=== PATIENT | female | born 1965 | race Caucasian/White ===

== ENCOUNTER → 2018-12-20 | Outpatient (CLI) | payer BC ==
[~2018-12-20] MED LIST: CIPRO500 MG PO; DARVOCET N 1001 TAB PO; DAYPRO600 M1 PO; DETROL LA4 MG PO; DITROPAN5 MG PO; FLOMAX0.4 MG PO; IBU-8800 MG PO; LISINOPRIL/HCTZ1 TA1 PO; LOPRESSOR50 MG PO; MAXALT-MLT5 MG PO; MOTRIN800 MG PO; NKHM; PERCOCET 325 MG1 TA2 PO; PERCOCET 325 MG1 TA5 PO; PERCOCET 325 MG1 TA7 PO; PREDNICOT20 MG PO; PYRIDIUM200 MG PO; ROBAXIN750 MG PO; ROBITUSSIN AC 10 MG/ PO; ROBITUSSIN AC 110 ML PO; TOPROL-XL50 MG PO; TRAMADOL50 MG PO; VESICARE5 MG PO; VICODIN 500 MG-1 TAB PO; ZITHROMAX Z PA250 MG PO; ZITHROMAX250 MG PO; ZOFRAN ODT4 MG SL; ZYRTEC10 MG PO; Zofran4 MG PO
== END | disposition home or self-care (01) ==
LOC: US 01:58
DX: N13.30 Unspecified hydronephrosis (principal)

== ENCOUNTER → 2019-01-30 | Outpatient (CLI) | payer BC ==
[2019-01-30 10:42] LABS: BASO # 0.1 10*3/uL (0.0-0.1); BASO % 0.8 % (0.0-1.0); EOS # 0.2 10*3/uL (0.0-0.4); EOS % 2.4 % (1.0-4.0); HEMATOCRIT 44.5 % (37.0-47.0); HEMOGLOBIN 14.8 g/dl (12.0-16.0); LYMPH # 2.9 10*3/uL (1.3-4.4); LYMPH % 36.5 % (27.0-41.0); MEAN CELL VOLUME 93.5 fl (81.0-99.0); MEAN CORPUSCULAR HGB 31.1 pg (27.0-31.0); MEAN CORPUSCULAR HGB CONC 33.3 g/dl (33.0-37.0); MEAN PLATELET VOLUME 9.8 fl (9.6-12.3); MONO # 0.8 10*3/uL (0.1-1.0); MONO % 10.7 % (3.0-9.0); NEUT # 3.8 10*3/uL (2.3-7.9); NEUT % 49.1 % (47.0-73.0); PLATELET COUNT AUTOMATED 333 10*3/uL (130-400); RED BLOOD COUNT 4.76 10*6/uL (4.10-5.10); RED CELL DISTRI WIDTH 11.6 % (0-14.5); WHITE BLOOD COUNT 7.8 10*3/uL (4.8-10.8)
[2019-01-30 10:48] LABS: BILIRUBIN NEGATIVE (NEGATIVE); BLOOD NEGATIVE (NEGATIVE); CLARITY SL CLOUDY (CLEAR); COLOR YELLOW (YELLOW); GLUCOSE NEGATIVE (NEGATIVE); KETONE NEGATIVE (NEGATIVE); LEUKO ESTERASE NEGATIVE (NEGATIVE); NITRITE NEGATIVE (NEGATIVE); SPECIFIC GRAVITY >= 1.030 (1.005-1.030); UROBILINOGEN 0.2 E.U./dl (0.2-1.0)
[2019-01-30 10:56] LABS: BACTERIA 2+; EPITHELIAL CELLS 16-20
[2019-01-30 11:05] LABS: ALBUMIN 3.6 gm/dl (3.1-4.5); BUN 16 mg/dl (7-24); CHLORIDE 105 mmol/L (98-107); CREATININE 0.86 mg/dL (0.55-1.02); POTASSIUM 3.6 mmol/L (3.5-5.1); SGOT/AST 26 IU/L (3-35); SGPT/ALT 48 U/L (12-78); SODIUM 140 mmol/L (136-145)
[2019-01-30 11:06] LABS: ALKALINE PHOSPHATASE 134 U/L (45-117)
== END | disposition home or self-care (01) ==
LOC: CT 10:00 → LAB 10:15
PROVIDERS: Urology
DX: N13.2 Hydronephrosis with renal and ureteral calculous obstruction (principal); I10 Essential (primary) hypertension; N39.0 Urinary tract infection, site not specified

== ENCOUNTER → 2019-02-21 | Outpatient (CLI) | payer BC ==
[2019-02-21 13:56] LABS: BILIRUBIN NEGATIVE (NEGATIVE); BLOOD NEGATIVE (NEGATIVE); CLARITY CLEAR (CLEAR); COLOR YELLOW (YELLOW); GLUCOSE NEGATIVE (NEGATIVE); KETONE NEGATIVE (NEGATIVE); LEUKO ESTERASE NEGATIVE (NEGATIVE); NITRITE NEGATIVE (NEGATIVE); PH 5.5 (5.0-9.0); SPECIFIC GRAVITY >= 1.030 (1.005-1.030); UROBILINOGEN 0.2 E.U./dl (0.2-1.0)
[2019-02-21 14:27] LABS: BACTERIA 2+; EPITHELIAL CELLS 16-20; MUCOUS TRACE
== END | disposition home or self-care (01) ==
LOC: LAB 02:19
PROVIDERS: Urology
DX: Z01.818 Encounter for other preprocedural examination (principal)

== ENCOUNTER → 2019-03-01 | Outpatient (CLI) | payer BC | END | disposition home or self-care (01) | LOC: RAD 09:41 | DX: N20.0 Calculus of kidney (principal) ==

== ENCOUNTER 2019-11-23 19:45 | Emergency (ER) | payer BC ==
[~2019-11-23] VITALS: Ht 170.1 cm; Wt 90.7 kg
[2019-11-23 20:17] LABS: BASO # 0.1 10*3/uL (0.0-0.1); BASO % 0.9 % (0.0-1.0); EOS # 0.2 10*3/uL (0.0-0.4); EOS % 1.9 % (1.0-4.0); HEMATOCRIT 42.9 % (37.0-47.0); LYMPH # 4.5 10*3/uL (1.3-4.4); LYMPH % 45.6 % (27.0-41.0); MEAN CELL VOLUME 91.5 fl (81.0-99.0); MEAN CORPUSCULAR HGB 29.9 pg (27.0-31.0); MEAN CORPUSCULAR HGB CONC 32.6 g/dl (33.0-37.0); MEAN PLATELET VOLUME 10.4 fl (9.6-12.3); MONO # 0.9 10*3/uL (0.1-1.0); MONO % 9.5 % (3.0-9.0); NEUT # 4.1 10*3/uL (2.3-7.9); NEUT % 41.8 % (47.0-73.0); PLATELET COUNT AUTOMATED 292 10*3/uL (130-400); RED BLOOD COUNT 4.69 10*6/uL (4.10-5.10); RED CELL DISTRI WIDTH 11.9 % (0-14.5); WHITE BLOOD COUNT 9.9 10*3/uL (4.8-10.8)
[2019-11-23 20:28] LABS: ACT PARTIAL THROMBO TIME 28.1 SECONDS (20.0-32.1); INTERNATIONAL NORM RATIO 0.9 (2.0-3.5)
[2019-11-23 20:34] LABS: ALBUMIN 3.8 gm/dl (3.1-4.5); ALKALINE PHOSPHATASE 132 U/L (45-117); BUN 17 mg/dl (7-24); CHLORIDE 106 mmol/L (98-107); CREATININE 0.85 mg/dL (0.55-1.02); POTASSIUM 3.4 mmol/L (3.5-5.1); SGOT/AST 23 IU/L (3-35); SGPT/ALT 47 U/L (12-78); SODIUM 140 mmol/L (136-145); TOTAL PROTEIN 7.7 gm/dL (6.4-8.2); TROPONIN I < 0.015 ng/ml (<0.045)
[2019-11-24] MEDS ORDERED: ZOFRAN4 MG PO (01:02)
[2019-11-24] MEDS ORDERED: PEPCID20 MG PO (01:02)
== END 2019-11-24 01:18 | disposition home or self-care (01) ==
LOC: ED 19:45
PROVIDERS: Emergency Medicine
DX: R00.2 Palpitations (principal); M54.9 Dorsalgia, unspecified; R07.89 Other chest pain; R11.2 Nausea with vomiting, unspecified; I10 Essential (primary) hypertension; K21.9 Gastro-esophageal reflux disease without esophagitis; Z88.6 Allergy status to analgesic agent; Z79.899 Other long term (current) drug therapy

== ENCOUNTER → 2020-07-16 | Outpatient (CLI) | payer BC ==
[~2020-07-16] MED LIST changes: +PEPCID20 MG PO; +ZOFRAN4 MG PO
[2020-07-16 07:50] LABS: BASO # 0.1 10*3/uL (0.0-0.1); BASO % 0.7 % (0.0-1.0); EOS # 0.2 10*3/uL (0.0-0.4); EOS % 2.8 % (1.0-4.0); HEMATOCRIT 41.3 % (37.0-47.0); LYMPH # 3.2 10*3/uL (1.3-4.4); LYMPH % 43.8 % (27.0-41.0); MEAN CELL VOLUME 88.8 fl (81.0-99.0); MEAN CORPUSCULAR HGB 29.5 pg (27.0-31.0); MEAN CORPUSCULAR HGB CONC 33.2 g/dl (33.0-37.0); MEAN PLATELET VOLUME 10.2 fl (9.6-12.3); MONO # 0.7 10*3/uL (0.1-1.0); MONO % 10.3 % (3.0-9.0); NEUT # 3.1 10*3/uL (2.3-7.9); NEUT % 42.3 % (47.0-73.0); PLATELET COUNT AUTOMATED 271 10*3/uL (130-400); RED BLOOD COUNT 4.65 10*6/uL (4.10-5.10); RED CELL DISTRI WIDTH 11.8 % (0-14.5); WHITE BLOOD COUNT 7.2 10*3/uL (4.8-10.8)
[2020-07-16 08:01] LABS: ALBUMIN 3.5 gm/dl (3.1-4.5); ALKALINE PHOSPHATASE 118 U/L (45-117); BUN 14 mg/dl (7-24); CHLORIDE 107 mmol/L (98-107); CREATININE 0.75 mg/dL (0.55-1.02); POTASSIUM 3.9 mmol/L (3.5-5.1); SGOT/AST 23 IU/L (3-35); SGPT/ALT 40 U/L (12-78); SODIUM 139 mmol/L (136-145); TOTAL PROTEIN 7.4 gm/dL (6.4-8.2)
== END | disposition home or self-care (01) ==
LOC: LAB 00:51 → US 07:30 → LAB 07:30
PROVIDERS: Family Medicine
DX: K76.0 Fatty (change of) liver, not elsewhere classified (principal); N20.0 Calculus of kidney; N13.30 Unspecified hydronephrosis

== ENCOUNTER 2020-11-04 09:21 | Emergency (ER) | payer BC ==
[~2020-11-04] VITALS: Ht 170.1 cm; Wt 90.7 kg
[2020-11-04 10:29] LABS: BASO # 0.1 10*3/uL (0.0-0.1); BASO % 0.6 % (0.0-1.0); EOS % 0.4 % (1.0-4.0); HEMATOCRIT 45.1 % (37.0-47.0); LYMPH # 2.2 10*3/uL (1.3-4.4); LYMPH % 20.5 % (27.0-41.0); MEAN CELL VOLUME 89.3 fl (81.0-99.0); MEAN CORPUSCULAR HGB 29.1 pg (27.0-31.0); MEAN CORPUSCULAR HGB CONC 32.6 g/dl (33.0-37.0); MEAN PLATELET VOLUME 9.8 fl (9.6-12.3); MONO # 0.8 10*3/uL (0.1-1.0); NEUT # 7.4 10*3/uL (2.3-7.9); NEUT % 70.3 % (47.0-73.0); PLATELET COUNT AUTOMATED 338 10*3/uL (130-400); RED BLOOD COUNT 5.05 10*6/uL (4.10-5.10); RED CELL DISTRI WIDTH 11.7 % (0-14.5); WHITE BLOOD COUNT 10.5 10*3/uL (4.8-10.8)
[2020-11-04 10:49] LABS: ALBUMIN 3.7 gm/dl (3.1-4.5); ALKALINE PHOSPHATASE 140 U/L (45-117); BUN 13 mg/dl (7-24); CHLORIDE 105 mmol/L (98-107); CREATININE 0.84 mg/dL (0.55-1.02); LIPASE 99 U/L (73-393); POTASSIUM 3.7 mmol/L (3.5-5.1); SGOT/AST 25 IU/L (3-35); SGPT/ALT 54 U/L (12-78); SODIUM 136 mmol/L (136-145); TOTAL PROTEIN 8.1 gm/dL (6.4-8.2)
[2020-11-04] MEDS ORDERED: ANUSOL-HC25 MG R (11:46)
[2020-11-04] MEDS ORDERED: DICYCLOMINE HCL10 MG PO (11:46)
== END 2020-11-04 12:04 | disposition home or self-care (01) ==
LOC: ED 09:21
PROVIDERS: Physician Assistant
DX: K52.9 Noninfective gastroenteritis and colitis, unspecified (principal); K21.9 Gastro-esophageal reflux disease without esophagitis; Z88.6 Allergy status to analgesic agent; Z79.899 Other long term (current) drug therapy

== ENCOUNTER → 2021-01-03 | Outpatient (CLI) | payer BC ==
[~2021-01-03] MED LIST changes: +ANUSOL-HC25 MG R; +DICYCLOMINE HCL10 MG PO
== END | disposition home or self-care (01) ==
LOC: RAD 11:31
PROVIDERS: ATTEND Internal Medicine Nephrology
DX: M25.422 Effusion, left elbow (principal); Z91.81 History of falling

== ENCOUNTER → 2021-01-16 | Outpatient (CLI) | payer BC | END | disposition home or self-care (01) | LOC: US 00:07 | PROVIDERS: ATTEND Internal Medicine | DX: K76.0 Fatty (change of) liver, not elsewhere classified (principal); N83.201 Unspecified ovarian cyst, right side; N13.30 Unspecified hydronephrosis; Z78.0 Asymptomatic menopausal state ==

== ENCOUNTER → 2021-02-03 | Outpatient (CLI) | payer BC | END | disposition home or self-care (01) | LOC: COVID19 08:09 | PROVIDERS: ATTEND Internal Medicine Gastroenterology | DX: Z01.812 Encounter for preprocedural laboratory examination (principal); Z20.822 Contact with and (suspected) exposure to COVID-19 ==

== ENCOUNTER → 2021-02-19 | Outpatient (CLI) | payer BC | END | disposition home or self-care (01) | LOC: MRI 00:19 | PROVIDERS: ATTEND Nurse Practitioner Women's Health | DX: N83.201 Unspecified ovarian cyst, right side (principal); N95.0 Postmenopausal bleeding; R93.89 Abnormal findings on diagnostic imaging of other specified body structures ==

== ENCOUNTER → 2021-03-11 | Outpatient (CLI) | payer BC ==
[2021-03-11 12:04] LABS: BASO # 0.1 10*3/uL (0.0-0.1); BASO % 0.9 % (0.0-1.0); EOS # 0.2 10*3/uL (0.0-0.4); EOS % 2.8 % (1.0-4.0); HEMATOCRIT 41.2 % (37.0-47.0); LYMPH # 2.7 10*3/uL (1.3-4.4); LYMPH % 42.6 % (27.0-41.0); MEAN CELL VOLUME 91.6 fl (81.0-99.0); MEAN CORPUSCULAR HGB 29.8 pg (27.0-31.0); MEAN CORPUSCULAR HGB CONC 32.5 g/dl (33.0-37.0); MEAN PLATELET VOLUME 9.7 fl (9.6-12.3); MONO # 0.5 10*3/uL (0.1-1.0); MONO % 7.8 % (3.0-9.0); NEUT # 2.9 10*3/uL (2.3-7.9); NEUT % 45.6 % (47.0-73.0); PLATELET COUNT AUTOMATED 321 10*3/uL (130-400); RED CELL DISTRI WIDTH 11.9 % (0-14.5); WHITE BLOOD COUNT 6.4 10*3/uL (4.8-10.8)
[2021-03-11 12:08] LABS: BILIRUBIN Negative (Negative); BLOOD Negative (Negative); CLARITY Clear (Clear); COLOR Yellow (Yellow); GLUCOSE Negative (Negative); KETONE Negative (Negative); LEUKO ESTERASE Negative (Negative); NITRITE Negative (Negative); PH 5.5 (4.5-8.0); UROBILINOGEN 0.2 E.U./dl (0.0-1.0)
[2021-03-11 12:18] LABS: BACTERIA 1+
[2021-03-11 12:39] LABS: ALBUMIN 3.7 gm/dl (3.1-4.5); ALKALINE PHOSPHATASE 130 U/L (45-117); BUN 18 mg/dl (7-24); CHLORIDE 107 mmol/L (98-107); CREATININE 0.72 mg/dL (0.55-1.02); POTASSIUM 3.9 mmol/L (3.5-5.1); SGOT/AST 57 IU/L (3-35); SGPT/ALT 91 U/L (12-78); SODIUM 138 mmol/L (136-145); T3 UPTAKE 34 % (31-39); THYROXINE (T4) TOTAL 7.6 ug/dl (4.8-13.9); TOTAL PROTEIN 7.5 gm/dL (6.4-8.2)
== END | disposition home or self-care (01) ==
LOC: LAB 10:48 → US 11:30
PROVIDERS: ATTEND Urology
DX: N20.0 Calculus of kidney (principal); R31.9 Hematuria, unspecified; N13.30 Unspecified hydronephrosis; N83.01 Follicular cyst of right ovary

== ENCOUNTER 2021-10-02 08:16 | Emergency (ER) | payer BC ==
[~2021-10-02] VITALS: Wt 81.6 kg
[2021-10-02 10:27] LABS: ALBUMIN 3.6 gm/dl (3.1-4.5); ALKALINE PHOSPHATASE 104 U/L (45-117); BUN 11 mg/dl (7-24); CHLORIDE 108 mmol/L (98-107); CREATININE 0.71 mg/dL (0.55-1.02); LIPASE 77 U/L (73-393); POTASSIUM 3.8 mmol/L (3.5-5.1); SGOT/AST 14 IU/L (3-35); SGPT/ALT 33 U/L (12-78); SODIUM 141 mmol/L (136-145); TOTAL PROTEIN 7.1 gm/dL (6.4-8.2)
[2021-10-02 10:31] LABS: BASO # 0.1 10*3/uL (0.0-0.1); BASO % 0.7 % (0.0-1.0); EOS # 0.1 10*3/uL (0.0-0.4); EOS % 0.9 % (1.0-4.0); HEMATOCRIT 41.5 % (37.0-47.0); LYMPH # 1.5 10*3/uL (1.3-4.4); LYMPH % 14.1 % (27.0-41.0); MEAN CELL VOLUME 91.6 fl (81.0-99.0); MEAN CORPUSCULAR HGB 30.5 pg (27.0-31.0); MEAN CORPUSCULAR HGB CONC 33.3 g/dl (33.0-37.0); MEAN PLATELET VOLUME 9.9 fl (9.6-12.3); MONO # 1.1 10*3/uL (0.1-1.0); MONO % 10.1 % (3.0-9.0); NEUT # 7.8 10*3/uL (2.3-7.9); NEUT % 73.9 % (47.0-73.0); PLATELET COUNT AUTOMATED 266 10*3/uL (130-400); RED BLOOD COUNT 4.53 10*6/uL (4.10-5.10); RED CELL DISTRI WIDTH 12.3 % (0-14.5); WHITE BLOOD COUNT 10.6 10*3/uL (4.8-10.8)
[2021-10-02 10:58] LABS: BILIRUBIN Negative (Negative); BLOOD 3+ (Negative); CLARITY Turbid (Clear); COLOR Orange (Yellow); GLUCOSE Negative (Negative); KETONE Negative (Negative); LEUKO ESTERASE 2+ (Negative); NITRITE Positive (Negative); PH 6.5 (4.5-8.0); UROBILINOGEN 0.2 E.U./dl (0.0-1.0)
[2021-10-02 11:09] LABS: BACTERIA 4+; RBC TNTC rbc/hpf (0-2); WBC TNTC wbc/hpf (0-5)
== END 2021-10-02 11:07 | disposition home or self-care (01) ==
LOC: ED 08:16
PROVIDERS: Emergency Medicine
DX: N13.2 Hydronephrosis with renal and ureteral calculous obstruction (principal); Z88.6 Allergy status to analgesic agent; Z79.899 Other long term (current) drug therapy

== ENCOUNTER 2022-02-09 16:45 | Emergency (ER) | payer BC ==
[~2022-02-09] VITALS: Ht 170.1 cm; Wt 83.9 kg
[2022-02-09] MEDS ORDERED: NEXIUM10 MG PO (17:13)
[2022-02-09] MEDS ORDERED: ENDOCET 5-3251 EACH PO (18:45)
== END 2022-02-09 18:35 | disposition home or self-care (01) ==
LOC: ED 16:45
DX: S42.401A Unspecified fracture of lower end of right humerus, initial encounter for closed fracture (principal); Z88.6 Allergy status to analgesic agent; Z79.899 Other long term (current) drug therapy; Z98.51 Tubal ligation status; W18.39XA Other fall on same level, initial encounter; Y93.89 Activity, other specified; Y92.89 Other specified places as the place of occurrence of the external cause; Y99.8 Other external cause status

== ENCOUNTER → 2022-03-03 | Outpatient (CLI) | payer BC ==
[~2022-03-03] MED LIST changes: +ENDOCET 5-3251 EACH PO; +NEXIUM10 MG PO
== END | disposition home or self-care (01) ==
LOC: ORTHO 00:26
PROVIDERS: ATTEND Orthopaedic Surgery
DX: S52.131D Displaced fracture of neck of right radius, subsequent encounter for closed fracture with routine healing (principal); X58.XXXD Exposure to other specified factors, subsequent encounter

== ENCOUNTER → 2022-03-18 | Outpatient (CLI) | payer BC | END | disposition home or self-care (01) | LOC: ORTHO 00:15 | PROVIDERS: ATTEND Orthopaedic Surgery | DX: M25.562 Pain in left knee (principal) ==

== ENCOUNTER → 2022-03-25 | Outpatient (CLI) | payer BC | END | disposition home or self-care (01) | LOC: ORTHO 01:43 | PROVIDERS: ATTEND Orthopaedic Surgery | DX: S52.121D Displaced fracture of head of right radius, subsequent encounter for closed fracture with routine healing (principal); X58.XXXD Exposure to other specified factors, subsequent encounter ==

== ENCOUNTER → 2022-08-10 | Outpatient (CLI) | payer BC | END | disposition home or self-care (01) | LOC: COVID19 10:26 | PROVIDERS: ATTEND Internal Medicine | DX: Z20.822 Contact with and (suspected) exposure to COVID-19 (principal) ==

== ENCOUNTER 2023-04-20 12:02 | Emergency (ER) | payer OTHER ==
[~2023-04-20] VITALS: Wt 89.4 kg
[2023-04-20 13:44] LABS: BASO # 0.1 10*3/uL (0.0-0.1); EOS # 0.2 10*3/uL (0.0-0.4); HEMATOCRIT 43.3 % (37.0-47.0); LYMPH # 3.3 10*3/uL (1.3-4.4); LYMPH % 40.7 % (27.0-41.0); MEAN PLATELET VOLUME 9.8 fl (9.6-12.3); MONO # 0.8 10*3/uL (0.1-1.0); MONO % 9.5 % (3.0-9.0); NEUT # 3.8 10*3/uL (2.3-7.9); NEUT % 46.6 % (47.0-73.0); PLATELET COUNT AUTOMATED 297 10*3/uL (130-400); RED BLOOD COUNT 4.76 10*6/uL (4.10-5.10); RED CELL DISTRI WIDTH 11.7 % (0-14.5); WHITE BLOOD COUNT 8.2 10*3/uL (4.8-10.8)
[2023-04-20 13:46] LABS: BILIRUBIN Negative (Negative); BLOOD Negative (Negative); CLARITY Clear (Clear); COLOR Yellow (Yellow); GLUCOSE Negative (Negative); KETONE Negative (Negative); LEUKO ESTERASE Negative (Negative); NITRITE Negative (Negative); PH 7.5 (4.5-8.0); SPECIFIC GRAVITY <= 1.005 (1.001-1.030)
[2023-04-20 14:08] LABS: ALKALINE PHOSPHATASE 147 U/L (46-116); BUN 9 mg/dl (9-23); CHLORIDE 103 mmol/L (98-107); POTASSIUM 3.8 mmol/L (3.4-5.1); SGPT/ALT 39 U/L (10-49); TOTAL PROTEIN 7.3 gm/dL (6.0-8.0)
[2023-04-20 14:08] LABS: BACTERIA 2+
[2023-04-20] MEDS ORDERED: CEPHALEXIN500 M1 PO (14:34)
== END 2023-04-20 14:55 | disposition home or self-care (01) ==
LOC: ED 12:02
PROVIDERS: Nurse Practitioner Family
DX: N39.0 Urinary tract infection, site not specified (principal); I10 Essential (primary) hypertension; G43.909 Migraine, unspecified, not intractable, without status migrainosus; Z87.442 Personal history of urinary calculi; K21.9 Gastro-esophageal reflux disease without esophagitis; Z88.6 Allergy status to analgesic agent; Z88.5 Allergy status to narcotic agent; Z98.51 Tubal ligation status; Z98.890 Other specified postprocedural states

== ENCOUNTER → 2023-06-09 | Outpatient (CLI) | payer OTHER ==
[~2023-06-09] MED LIST changes: +CEPHALEXIN500 M1 PO
== END | disposition home or self-care (01) ==
LOC: MAMMO 06-08 16:00
PROVIDERS: ATTEND Internal Medicine
DX: Z12.31 Encounter for screening mammogram for malignant neoplasm of breast (principal)

== ENCOUNTER → 2023-08-04 | Outpatient (CLI) | payer OTHER | END | disposition home or self-care (01) | LOC: MRI 00:41 | PROVIDERS: ATTEND Specialist | DX: I67.82 Cerebral ischemia (principal); R90.82 White matter disease, unspecified; H90.3 Sensorineural hearing loss, bilateral ==

== ENCOUNTER 2023-08-11 18:24 | Emergency (ER) | payer OTHER ==
[~2023-08-11] VITALS: Ht 170.1 cm; Wt 80.7 kg
[2023-08-11 19:54] LABS: BASO # 0.1 10*3/uL (0.0-0.1); BASO % 0.6 % (0.0-1.0); EOS # 0.1 10*3/uL (0.0-0.4); EOS % 1.5 % (1.0-4.0); HEMATOCRIT 40.8 % (37.0-47.0); LYMPH # 1.9 10*3/uL (1.3-4.4); LYMPH % 23.4 % (27.0-41.0); MEAN CELL VOLUME 88.7 fl (81.0-99.0); MEAN CORPUSCULAR HGB 30.2 pg (27.0-31.0); MEAN CORPUSCULAR HGB CONC 34.1 g/dl (33.0-37.0); MONO # 1.3 10*3/uL (0.1-1.0); NEUT # 4.7 10*3/uL (2.3-7.9); NEUT % 58.4 % (47.0-73.0); PLATELET COUNT AUTOMATED 257 10*3/uL (130-400); RED CELL DISTRI WIDTH 11.8 % (0-14.5); WHITE BLOOD COUNT 8.1 10*3/uL (4.8-10.8)
[2023-08-11 19:56] LABS: BILIRUBIN Negative (Negative); BLOOD Negative (Negative); CLARITY Clear (Clear); COLOR Dark Yellow (Yellow); GLUCOSE Negative (Negative); KETONE Trace (Negative); LEUKO ESTERASE 1+ (Negative); NITRITE Negative (Negative)
[2023-08-11 20:06] LABS: BACTERIA 2+
[2023-08-11 20:15] LABS: ALKALINE PHOSPHATASE 115 U/L (46-116); BUN 15 mg/dl (9-23); CHLORIDE 102 mmol/L (98-107); POTASSIUM 3.1 mmol/L (3.4-5.1); SGPT/ALT 28 U/L (10-49); TOTAL PROTEIN 6.7 gm/dL (6.0-8.0)
== END 2023-08-11 22:27 | disposition home or self-care (01) ==
LOC: ED 18:24
PROVIDERS: Physician Assistant Medical
DX: N39.0 Urinary tract infection, site not specified (principal); Z87.442 Personal history of urinary calculi; R11.2 Nausea with vomiting, unspecified; R19.7 Diarrhea, unspecified; I10 Essential (primary) hypertension; K21.9 Gastro-esophageal reflux disease without esophagitis; G43.909 Migraine, unspecified, not intractable, without status migrainosus; Z88.6 Allergy status to analgesic agent; Z88.5 Allergy status to narcotic agent; Z98.51 Tubal ligation status; Z98.890 Other specified postprocedural states

== ENCOUNTER 2024-02-16 16:32 | Emergency (ER) | payer OTHER ==
[~2024-02-16] VITALS: Ht 170.1 cm; Wt 84.4 kg
[2024-02-16 17:06] LABS: BILIRUBIN Negative (Negative); BLOOD Negative (Negative); CLARITY Clear (Clear); COLOR Yellow (Yellow); GLUCOSE Negative (Negative); KETONE Negative (Negative); LEUKO ESTERASE Negative (Negative); NITRITE Negative (Negative); PH 7.5 (4.5-8.0); SPECIFIC GRAVITY 1.015 (1.001-1.030)
[2024-02-16 17:14] LABS: BASO # 0.1 10*3/uL (0.0-0.1); BASO % 0.9 % (0.0-1.0); EOS # 0.2 10*3/uL (0.0-0.4); EOS % 2.2 % (1.0-4.0); HEMATOCRIT 42.4 % (37.0-47.0); LYMPH # 3.4 10*3/uL (1.3-4.4); LYMPH % 44.1 % (27.0-41.0); MEAN CELL VOLUME 91.6 fl (81.0-99.0); MEAN CORPUSCULAR HGB 29.8 pg (27.0-31.0); MEAN CORPUSCULAR HGB CONC 32.5 g/dl (33.0-37.0); MEAN PLATELET VOLUME 9.9 fl (9.6-12.3); MONO # 0.7 10*3/uL (0.1-1.0); MONO % 9.2 % (3.0-9.0); NEUT # 3.4 10*3/uL (2.3-7.9); NEUT % 43.3 % (47.0-73.0); PLATELET COUNT AUTOMATED 279 10*3/uL (130-400); RED BLOOD COUNT 4.63 10*6/uL (4.10-5.10); RED CELL DISTRI WIDTH 11.7 % (0-14.5); WHITE BLOOD COUNT 7.7 10*3/uL (4.8-10.8)
[2024-02-16 17:16] LABS: BACTERIA 2+
[2024-02-16 17:40] LABS: ALKALINE PHOSPHATASE 163 U/L (46-116); BUN 9 mg/dl (9-23); CHLORIDE 104 mmol/L (98-107); POTASSIUM 4.3 mmol/L (3.4-5.1); SGPT/ALT 89 U/L (5-49); TOTAL PROTEIN 7.3 gm/dL (6.0-8.0)
[2024-02-16] MEDS ORDERED: TRAMADOL HCL25 MG PO (18:12)
== END 2024-02-16 18:21 | disposition home or self-care (01) ==
LOC: ED 16:32
PROVIDERS: Physician Assistant Medical
DX: R10.32 Left lower quadrant pain (principal); R11.2 Nausea with vomiting, unspecified; I10 Essential (primary) hypertension; F41.9 Anxiety disorder, unspecified; Z88.6 Allergy status to analgesic agent; Z88.8 Allergy status to other drugs, medicaments and biological substances; Z79.2 Long term (current) use of antibiotics; Z79.899 Other long term (current) drug therapy; Z98.51 Tubal ligation status; Z87.442 Personal history of urinary calculi

== ENCOUNTER → 2024-02-26 | Outpatient (CLI) | payer OTHER ==
[~2024-02-26] MED LIST changes: +IOHEXOL 350 MG/ML 100 ML VIAL IV ONE; +TRAMADOL HCL25 MG PO
== END | disposition home or self-care (01) ==
LOC: CT 00:22
PROVIDERS: ATTEND Urology
DX: N20.0 Calculus of kidney (principal); N28.1 Cyst of kidney, acquired; N83.291 Other ovarian cyst, right side; N83.201 Unspecified ovarian cyst, right side

== ENCOUNTER 2025-06-18 03:42 | Emergency (ER) | payer OTHER ==
[~2025-06-18] VITALS: Ht 170.1 cm; Wt 89.8 kg
[~2025-06-18 03:42] MED LIST changes: -IOHEXOL 350 MG/ML 100 ML VIAL IV ONE
[2025-06-18 04:56] LABS: BILIRUBIN Negative (Negative); BLOOD 3+ (Negative); CLARITY Cloudy (Clear); COLOR Yellow (Yellow); KETONE Trace (Negative); LEUKO ESTERASE Trace (Negative); NITRITE Negative (Negative); PH 6.0 (4.5-8.0); SPECIFIC GRAVITY 1.025 (1.001-1.030); UROBILINOGEN 1.0 E.U./dl (0.0-1.0)
[2025-06-18 05:06] LABS: RBC 51-100 rbc/hpf (0-2)
[2025-06-18 05:07] LABS: BACTERIA 1+; FINE GRANULAR CAST 0-2; MUCOUS 1+
[2025-06-18] MEDS ORDERED: Ondansetron Hydrochloride 4 MG/2 ML VIAL IV ONE (05:20)
[2025-06-18] MEDS ORDERED: Ondansetron4 MG PO (07:26)
[2025-06-18] MEDS ORDERED: FLOMAX0.4 MG PO (07:26)
[2025-06-18] MEDS ORDERED: NAPROXEN250 MG PO (07:26)
== END 2025-06-18 07:34 | disposition home or self-care (01) ==
LOC: ED 03:42
PROVIDERS: Internal Medicine
DX: N13.2 Hydronephrosis with renal and ureteral calculous obstruction (principal); Z88.6 Allergy status to analgesic agent; Z88.8 Allergy status to other drugs, medicaments and biological substances

== ENCOUNTER 2025-10-19 13:12 | Emergency (ER) | payer OTHER ==
[~2025-10-19] VITALS: Ht 170.1 cm; Wt 89.8 kg
[~2025-10-19 13:12] MED LIST changes: +NAPROXEN250 MG PO; +Ondansetron4 MG PO
[2025-10-19] MEDS ORDERED: Dicyclomine Hydrochloride 20 MG/10 ML OSYR PO STA (13:33)
[2025-10-19] MEDS ORDERED: MG-AL HYDROXIDE/SIMETICONE 30 ML UDC PO STA (13:33)
[2025-10-19] MEDS ORDERED: IOHEXOL 300 MG/ML 100 ML VIAL IV ONE (13:40)
[2025-10-19 13:47] LABS: BASO # 0.1 10*3/uL (0.0-0.1); BASO % 0.9 % (0.0-1.0); EOS # 0.2 10*3/uL (0.0-0.4); EOS % 2.0 % (1.0-4.0); MEAN CELL VOLUME 91.9 fl (81.0-99.0); MEAN CORPUSCULAR HGB 30.0 pg (27.0-31.0); MEAN PLATELET VOLUME 9.8 fl (9.6-12.3); MONO # 0.7 10*3/uL (0.1-1.0); MONO % 9.0 % (3.0-9.0); NEUT # 4.3 10*3/uL (2.3-7.9); NEUT % 54.6 % (47.0-73.0); NUCLEATED RED BLOOD CELL 0.0 % (0.0-0.0); NUCLEATED RED BLOOD CELL 0.0 10*3/uL (0.0-0.0); PLATELET COUNT AUTOMATED 317 10*3/uL (130-400); RED CELL DISTRI WIDTH 11.7 % (0-14.5)
[2025-10-19 14:08] LABS: BUN 10 mg/dl (9-23); SGPT/ALT 70 U/L (5-49)
[2025-10-19] MEDS ORDERED: PROTONIX40 MG PO (15:53)
[2025-10-19] MEDS ORDERED: Pantoprazole Sodium 20 MG TAB PO ONE (15:55)
== END 2025-10-19 16:04 | disposition home or self-care (01) ==
LOC: ED 13:12
PROVIDERS: Nurse Practitioner Family
DX: K21.9 Gastro-esophageal reflux disease without esophagitis (principal); Z88.6 Allergy status to analgesic agent; Z79.899 Other long term (current) drug therapy